=== PATIENT | male | born 1965 | race Hispanic/Latino ===

== ENCOUNTER 2025-03-27 09:21 | Emergency (ER) | payer OTHER ==
[~2025-03-27] VITALS: Ht 165.1 cm; Wt 59.8 kg
[2025-03-27] MEDS ORDERED: HYDROmorphone HCL 1 MG/ML SYR IV PRN (09:45)
[2025-03-27] MEDS ORDERED: SODIUM CHLORIDE 0.9% 1,000 ML IV ONE (09:45)
[2025-03-27 09:48] LABS: BASOPHILS 0.6 % (0.2-1.2); EOSINOPHILS 1.3 % (0.8-7.0); LYMPHOCYTES 27.9 % (21.8-53.1); MCH 32.5 PG (25.7-32.2); MCHC 36.5 g/dL (32.3-36.5); MCV 89.0 fL (79.0-92.2); MONOCYTES 6.7 % (5.3-12.2); NEUTROPHILS 63.3 % (34.0-67.9); RBC 4.55 M/uL (4.63-6.08)
[2025-03-27] MEDS ORDERED: GLIPIZIDE5 MG PO (10:01)
[2025-03-27] MEDS ORDERED: METFORMIN HCL500 MG PO (10:01)
[2025-03-27] MEDS ORDERED: CARBAMAZEPINE200 M3 PO (10:01)
[2025-03-27 10:03] LABS: ALT (SGPT) 24.0 U/L (14-59); AST (SGOT) 14.0 U/L (15-37); GLOMERULAR FILTRATION RATE,EST 90.0 mL/min (>60); PROTEIN, TOTAL 7.6 g/dL (6.4-8.2); UREA NITROGEN 15.0 mg/dL (7-18)
[2025-03-27 11:08] LABS: BLOOD/HGB, URINE NEGATIVE (Negative); KETONE, URINE NEGATIVE (Negative); LEUK ESTERASE, URINE NEGATIVE (negative); NITRITE, URINE NEGATIVE (negative)
[2025-03-27 11:21] VITALS: BP 135/89
== END 2025-03-27 11:21 | disposition home or self-care (01) ==
LOC: ED 09:21
PROVIDERS: Emergency Medicine
DX: K59.00 Constipation, unspecified (principal); E11.65 Type 2 diabetes mellitus with hyperglycemia; Z79.84 Long term (current) use of oral hypoglycemic drugs
CPT/HCPCS: 36415; 74177; 80053; 81003; 83690; 85025; 96361; 96374; 96375; 99284-25; J1171; J2405; J7030; Q9967